=== PATIENT | male | born 1995 | race Caucasian/White ===

== ENCOUNTER 2024-09-07 22:03 | Emergency (ER) | payer MEDICAID, SELFPAY ==
--- NOTE | ~2024-09-07 | CT_ITS ---
EXAMINATION: CT HEAD WITHOUT CONTRAST CLINICAL INFORMATION: First time seizure. COMPARISON: None available. TECHNIQUE: Contiguous axial imaging was performed from the skull base to vertex without intravenous administration of contrast. Sagittal and coronal reformatted images also obtained. This CT examination was performed using dose optimization techniques as appropriate, variously including the following: *Automated exposure control *Adjustment of mA and/or kV according to patient size (this includes techniques or standardized protocols for targeted exams where dose is matched to indication/reason for exam; i.e. extremities or head) *Use of iterative reconstruction technique DLP: 735 mGy-cm FINDINGS: The lateral, third and fourth ventricles are normally outlined. The cortical sulci and basal cisterns are normally outlined as well. There is no acute territorial defect, hemorrhage or midline shift. The extra-axial spaces are unremarkable. Calvarium/scalp: Intact. Maxillofacial sinuses and mastoids: There is mucosal thickening of the frontal and the ethmoid sinuses. The remaining visualized maxillofacial sinuses and mastoids are clear. CT/CT head/brain wo IV con IMPRESSION: No acute intracranial abnormality. Electronically signed by: Kevin Amaro MD 09/07/2024 11:59 PM [facility]
[2024-09-07 22:09] VITALS: BP 129/71; BP 147/33; PULSE 104; PULSE 89; RESP 16; TEMP 36.4; O2SAT 96; O2SAT 97; BMI 33.6
[2024-09-07 22:18] VITALS: BP 129/71; PULSE 95; PULSE 98; RESP 16; TEMP 36.4; O2SAT 97; O2SAT 98
--- NOTE | 2024-09-07 22:19 | ECG_ITS ---
Test Reason : SYNCOPE Blood Pressure : / mmHG Vent. Rate : 085 BPM Atrial Rate : 085 BPM P-R Int : 170 ms QRS Dur : 100 ms QT Int : 366 ms P-R-T Axes : 061 047 030 degrees QTc Int : 435 ms Normal sinus rhythm with sinus arrhythmia Nonspecific T wave abnormality Abnormal ECG No previous ECGs available Referred By: Mariana Rainey Electronically Signed By:Amando Kaiser
--- NOTE | 2024-09-07 22:20 | ED.GENADULT ---
HPI - General Adult General Chief complaint: Fall Stated complaint: possible seizure Time Seen by Provider: 09/07/24 22:10 Source: patient and EMS Mode of arrival: EMS Limitations: no limitations History of Present Illness ED Provider: Dr. Mariana Rainey HPI narrative: Patient comes to the emergency room complaining of a possible seizure. However, patient states that he passed out. Patient states that he was at home in his room, patient states that he started feeling lightheaded like he was going to pass out, got tunnel vision. Patient states that he realized that he was about to pass out, lowered himself to the ground. Patient did not hit his head or lost consciousness. According to bystanders who were with him, they report that the patient was unconscious for a few seconds. no tonic-clonic movements were reported by bystanders. Patient states that at this time he feels a bit nauseous but otherwise feels okay. Patient denies chest pain or shortness of breath, denies lower extremity pain or swelling Related Data Allergies Allergy/AdvReac Type Severity Reaction Status Date / Time No Known Allergies Allergy Verified 09/07/24 22:15 Review of Systems Review of Systems: Constitutional : No Weight loss, No Fever, No Chills, No Night Sweats, No Fatigue, No Malaise ENT/Mouth : No Hearing loss, No Ear Pain, No Nasal Congestion, No Sinus Pain, No Hoarseness, No sore throat, No Rhinorrhea, No Swallowing Difficulty Eyes: No Eye Pain, No Swelling, No Redness, No Foreign Body, No Discharge, No Vision Changes Cardiovascular : No Chest Pain, No SOB, No Dyspnea on Exertion, No Orthopnea, No Edema, No Palpitations Respiratory : No Cough, No Sputum, No Wheezing, No Smoke Exposure, No Dyspnea Gastrointestinal : No Nausea, No Vomiting, No Diarrhea, No Constipation, No abdominal Pain, No Hematochezia, No Melena Genitourinary : no irregular bleeding, No Dysuria, No Urinary Frequency, No Hematuria, No Urinary Incontinence, No Urgency, No Flank Pain, No Urinary Flow Changes, No Hesitancy Musculoskeletal : No joint pain, No Myalgias, No Joint Swelling Skin : No Skin Lesions, No rash Neuro : No Weakness, No Numbness, No Paresthesias, patient reports 1 episode of lightheadedness, tunnel elevation and loss of consciousness, No Dizziness, No Headache Psych : No Anxiety/Panic, No Depression, No SI/HI/AH/VH, No Social Issues, Heme/Lymph: No Bruising, No Bleeding,No Lymphadenopathy Endocrine : No Polyuria, No Polydipsia, No Temperature Intolerance [facility] Social History Social History Smoked in Last 30 Days: No Substance Use Type: Marijuana Advance Directives: No Advance Directives Information Provided: Yes Do you have a plan to hurt others: No Plan Physical Exam ED Vital Signs: Vital Signs - 24 hr 09/07/24 22:09 09/07/24 22:18 09/07/24 22:18 Temperature 97.5 F 97.5 F 97.5 F Pulse Rate 89 95 98 Respiratory Rate 16 16 16 Blood Pressure 129/71 129/71 129/71 Pulse Oximetry 97 98 97 Oxygen Delivery Method Room Air Room Air 09/07/24 22:48 09/07/24 22:48 09/07/24 22:50 Temperature Pulse Rate 87 97 89 Respiratory Rate Blood Pressure 111/58 L 110/70 119/60 Pulse Oximetry Oxygen Delivery Method 09/08/24 00:00 09/08/24 02:22 Temperature 98.2 F Pulse Rate 111 H 100 Respiratory Rate 16 16 Blood Pressure 114/57 L 120/66 Pulse Oximetry 97 94 Oxygen Delivery Method Room Air Room Air BMI result Body Mass Index 33.6 Const Other: Appearance: Alert. Oriented X3. No acute distress. Eyes: Pupils equal, round and reactive to light. ENT: Pharynx normal. Neck: Normal inspection. Neck supple. No lymph nodes noted. No crepitus CVS: Normal heart rate and rhythm. Pulses normal. Normal S1 and S2 Respiratory: No respiratory distress. Breath sounds normal. No Wheezing. No rales Abdomen: Soft and nontender. No rigidity. No distention. Skin: Skin warm and dry. slightly pale skin color. Normal skin turgor. Extremities: No lower extremity edema. No Lacerations. No Rash Neuro: Oriented X 3. No motor deficit. No sensory deficit. Moving all extremities. No slurred speech. CN 2 through 12 grossly intact Psych: calm, cooperative, normal affect Course Course Course Narrative: patient's labs, EKG pending. Patient was given sublingual Zofran for the nausea. Medications Administered Discontinued Medications Generic Name Dose Route Start Last Admin Trade Name Freq PRN Reason Stop Dose Admin Sodium Chloride 1,000 mls @ 999 mls/hr 09/07/24 23:15 09/08/24 02:29 Ns IVCONT 09/08/24 00:15 Infused .Q1H1M ONE Infusion Ondansetron HCl 4 mg 09/07/24 22:22 09/08/24 00:07 Ondansetron Odt 4 Mg Tab.Rapdis TRANSLINGU 09/07/24 22:23 4 mg ONCE ONE Administration Prochlorperazine Edisylate 10 mg 09/07/24 23:18 09/08/24 00:07 Prochlorperazine Edisylate 10 Mg/2 Ml Vial IVPUSH 09/07/24 23:19 10 mg ONCE ONE Administration Medical Decision Making Medical Decision Making [facility] Narrative: patient's white blood cell count 19.9, lactic 2.3. No source of infection, rest of hematology and chemistry within normal limits. D-dimer negative Physical exam, patient has no nuchal rigidity, patient feels much better. Based on patient's labs, he likely did have a seizure. - Head CT did not show any acute abnormality. - Orthostatic vitals are negative - Discussed with the patient to not drive until he is medically cleared by either Neurology or PCP. - At this time, patient's vitals stable, patient states that it feels complaining of back to normal. discussed with the patient to avoid using marijuana or any drugs as this can be triggers. Differential Diagnosis Differential Diagnoses: The differential diagnosis associated with the presentation includes ( Seizure, pseudo-seizure, syncope, near-syncope) Admission/Observation Consideration of admission/observation: Escalation of care including admission/observation considered ( given patient's presentation , observation was considered) Lab Data [facility] Lab Attestation statement: I reviewed the patient's lab results. 09/08/24 00:58 09/07/24 22:42 Labs: Lab Results 09/07/24 09/08/24 09/08/24 Range/Units 22:42 00:58 01:05 WBC 19.9 H 17.4 H (4.8-10.8) X10*3/uL RBC 5.48 5.12 (4.60-5.80) X10*6/uL Hgb 14.9 14.1 (14.0-18.0) g/dl Hct 43.9 40.9 L (42.0-52.0) % MCV 80.1 79.9 L (80.0-98.0) fL MCH 27.2 27.5 (27.0-33.0) pg MCHC 33.9 34.5 (31.0-36.0) g/dl RDW 12.7 12.7 (11.0-16.0) % Plt Count 431 H 324 (160-400) X10*3/uL MPV 9.5 9.5 (9.4-12.4) fL Immature Gran % (Auto) 0.5 H 0.3 (0.0-0.4) % Neut % (Auto) 71.8 87.2 H (45-73) % Lymph % (Auto) 18.5 L 7.7 L (20-40) % [place] % (Auto) 6.0 4.2 (2-11) % Eos % (Auto) 2.5 0.2 (0-4) % Baso % (Auto) 0.7 0.4 (0-2) % Lymph # (Auto) 3.7 1.3 (1.2-4.9) X10*3/uL [place] # (Auto) 1.2 0.7 (0.1-1.2) X10*3/uL Eos # (Auto) 0.5 H 0.0 (0.0-0.4) X10*3/uL Baso # (Auto) 0.1 0.1 (0.0-0.2) X10*3/uL Abs Immat Gran (auto) 0.10 H 0.06 H (0.00-0.03) X10*3/uL Absolute Neuts (auto) 14.3 H 15.1 H (2.0-8.3) x10*3/uL Absolute Nucleated RBC 0.000 0.000 (0.0-0.012) X10*3/uL Nucleated RBC % (auto) 0.0 0.0 (0.0-0.2) /100WBC PT 12.8 H (10.9-12.4) SEC INR 1.1 (0.9-1.1) D-Dimer High Sensitivty 166 NG/ML Sodium 139 (135-145) mmol/L Potassium 3.3 (3.3-5.1) mmol/L Chloride 100 (96-108) mmol/L Carbon Dioxide 26 (22-29) mmol/L Anion Gap 16 (12-20) BUN 13 (9-16) mg/dL Creatinine 1.00 (0.5-1.4) mg/dL Estim Creat Clear Calc 135.8 Estimated GFR > 60 Random Glucose 134 H (60-115) mg/dL Lactic Acid 2.3 H* (0.5-2.0) mmol/L Lactic Acid F/U @ 2Hr 1.7 (0.5-2.0) mmol/L Calcium 9.4 (8.4-10.2) mg/dL Magnesium 2.0 (1.6-2.6) mg/dL Total Bilirubin 0.3 (0.0-1.0) mg/dL Direct Bilirubin 0.1 (0.0-0.5) mg/dL AST 25 (5-37) U/L ALT 30 (0-40) U/L Alkaline Phosphatase 111 (39-117) U/L Troponin I High Sens < 2.7 (<3.5-35.0) ng/L Total Protein 8.7 H (6.5-8.0) g/dL Albumin 4.4 (3.5-5.0) g/dL Urine Color Yellow Urine Appearance Cloudy Urine pH 5.5 (5.0-9.0) Ur Specific [place] 1.020 (1.005-1.025) Urine Protein Trace (Neg-Trace) mg/dL Urine Glucose (UA) Negative (Negative) mg/dL Urine Ketones Trace (Negative) mg/dL Urine Blood Negative (Negative) Urine Nitrite Negative (Negative) Ur Leukocyte Esterase Trace H (Negative) Urine RBC 0-2 (0-2) /HPF Urine WBC 6-10 H (0-5) /HPF Ur Squamous Epith Cells 3-5 (0-2) /HPF Urine Bacteria 1+ (None Seen) Hyaline Casts 3-5 (0-2) /LPF Urine Opiates Screen Not Detected (Not Detect) Ur Buprenorphine Scrn Not Detected (Not Detect) ng/mL Ur Oxycodone Screen Not Detected (Not Detect) ng/mL Urine Methadone Screen Not Detected (Not Detect) ng/mL Urine Fentanyl Screen Not Detected (Not Detect) Ur Barbiturates Screen Not Detected (Not Detect) Ur Phencyclidine Scrn Not Detected (Not Detect) Ur Amphetamines Screen Not Detected (Not Detect) U Benzodiazepines Scrn Not Detected (Not Detect) Urine Cocaine Screen Not Detected (Not Detect) U Marijuana (THC) Screen POSITIVE H (Not Detect) Ethyl Alcohol < 10 mg/dL Independent Interpretation I performed an independent interpretation of an: CT Scan Radiology Impression Discussion of test interpretation with radiology: I have reviewed the radiologist's reading. Radiologist Impression: The lateral, third and fourth ventricles are normally outlined. The cortical sulci and basal cisterns are normally outlined as well. There is no acute territorial defect, hemorrhage or midline shift. The extra-axial spaces are unremarkable. Calvarium/scalp: Intact. Maxillofacial sinuses and mastoids: There is mucosal thickening of the frontal and the ethmoid sinuses. The remaining visualized maxillofacial sinuses and mastoids are clear. CT/CT head/brain wo IV con IMPRESSION: No acute intracranial abnormality. Critical Care Time Critical Care Time Critical Care Time: Yes Total Critical Care Time: 45 Attestation: I have personally provided critical care time. Time includes review of lab data, radiology results, discussion with consultants, and monitoring for potential decompensation. Intervention performed as documented. Discharge Plan Discharge Clinical Impression: Seizure Patient Disposition: Home, Self-Care Instructions: New-Onset Seizure in Adults (ED) Additional Instructions: Please follow-up with your primary care physician tomorrow. Please avoid driving until cleared by PCP or Neurology. If you have any worsening or new symptoms, please return to the emergency room or call 911 Referrals: Clair Steiner MD [Physician] - 10/09/24 Print Language: Bangladeshi
--- NOTE | 2024-09-07 22:43 | MHC.EDTECH ---
Patient states he is unable to provide urine sample at this time.
[2024-09-07 22:48] VITALS: BP 110/70; BP 111/58; PULSE 87; PULSE 97
[2024-09-07 22:48] LABS: MANUAL DIFF FLAG NO
[2024-09-07 22:49] LABS: Basophils Absolute Auto 0.1 X10*3/uL (0.0-0.2); Basophils Percent Auto 0.7 % (0-2); Eosinophils Absolute Auto 0.5 X10*3/uL (0.0-0.4); Eosinophils Percent Auto 2.5 % (0-4); Hematocrit 43.9 % (42.0-52.0); Hemoglobin 14.9 g/dl (14.0-18.0); Imm Gran Pct Auto 0.5 % (0.0-0.4); Lymphocytes Absolute Auto 3.7 X10*3/uL (1.2-4.9); Lymphocytes Percent Auto 18.5 % (20-40); Mean Corpuscular HGB Conc 33.9 g/dl (31.0-36.0); Mean Corpuscular Hemoglobin 27.2 pg (27.0-33.0); Mean Corpuscular Volume 80.1 fL (80.0-98.0); Mean Platelet Volume 9.5 fL (9.4-12.4); Monocytes Absolute Auto 1.2 X10*3/uL (0.1-1.2); Neutrophils Absolute Auto 14.3 x10*3/uL (2.0-8.3); Neutrophils Percent Auto 71.8 % (45-73); Platelet Count 431 X10*3/uL (160-400); Red Blood Count 5.48 X10*6/uL (4.60-5.80); Red Cell Distribution Width 12.7 % (11.0-16.0); White Blood Count 19.9 X10*3/uL (4.8-10.8)
[2024-09-07 22:50] VITALS: BP 119/60; PULSE 89
[2024-09-07 22:55] LABS: INTERNATIONAL NORM RATIO 1.1 (0.9-1.1); Prothrombin Time 12.8 SEC (10.9-12.4)
[2024-09-07 22:56] LABS: D Dimer High Sensitivity 166 NG/ML
[2024-09-07 23:05] LABS: Alanine Aminotransferase 30 U/L (0-40); Albumin Level 4.4 g/dL (3.5-5.0); Alkaline Phosphatase 111 U/L (39-117); Anion Gap 16 (12-20); Aspartate Amino Transferase 25 U/L (5-37); Bilirubin Direct 0.1 mg/dL (0.0-0.5); Bilirubin Total 0.3 mg/dL (0.0-1.0); Blood Urea Nitrogen 13 mg/dL (9-16); Calcium 9.4 mg/dL (8.4-10.2); Carbon Dioxide 26 mmol/L (22-29); Chloride 100 mmol/L (96-108); Creatinine Clr Calc Pharmacy 135.8; Estimated Glomerular Filt Rate > 60; Ethanol < 10 mg/dL; Glucose Random 134 mg/dL (60-115); Potassium 3.3 mmol/L (3.3-5.1); Sodium 139 mmol/L (135-145); Total Protein 8.7 g/dL (6.5-8.0)
[2024-09-07 23:11] LABS: Troponin-I High Sensitivity < 2.7 ng/L (<3.5-35.0)
[2024-09-07 23:15] LABS: Lactic Acid 2.3 mmol/L (0.5-2.0)
[2024-09-08] VITALS: BP 114/57; PULSE 111; RESP 16; O2SAT 97
[2024-09-08] MEDS: Ondansetron ODT 4 MG TAB.RAPDIS TRANSLINGU (00:07)
[2024-09-08] MEDS: Prochlorperazine Edisylate 10 MG/2 ML VIAL IVPUSH (00:07)
[2024-09-08] MEDS: 0.9 % Sodium Chloride 1,000 ML 999 ML IVCONT (00:07)
[2024-09-08 00:46] LABS: Reflex Lactate? Lactic Acid Added
[2024-09-08 01:05] LABS: Basophils Absolute Auto 0.1 X10*3/uL (0.0-0.2); Basophils Percent Auto 0.4 % (0-2); Eosinophils Percent Auto 0.2 % (0-4); Hematocrit 40.9 % (42.0-52.0); Hemoglobin 14.1 g/dl (14.0-18.0); Imm Gran Abs Auto 0.06 X10*3/uL (0.00-0.03); Imm Gran Pct Auto 0.3 % (0.0-0.4); Lymphocytes Absolute Auto 1.3 X10*3/uL (1.2-4.9); Lymphocytes Percent Auto 7.7 % (20-40); MANUAL DIFF FLAG NO; Mean Corpuscular HGB Conc 34.5 g/dl (31.0-36.0); Mean Corpuscular Hemoglobin 27.5 pg (27.0-33.0); Mean Corpuscular Volume 79.9 fL (80.0-98.0); Mean Platelet Volume 9.5 fL (9.4-12.4); Monocytes Absolute Auto 0.7 X10*3/uL (0.1-1.2); Monocytes Percent Auto 4.2 % (2-11); Neutrophils Absolute Auto 15.1 x10*3/uL (2.0-8.3); Neutrophils Percent Auto 87.2 % (45-73); Platelet Count 324 X10*3/uL (160-400); Red Blood Count 5.12 X10*6/uL (4.60-5.80); Red Cell Distribution Width 12.7 % (11.0-16.0); White Blood Count 17.4 X10*3/uL (4.8-10.8)
[2024-09-08 01:14] LABS: Appearance Urine Cloudy; Color Urine Yellow; Glucose Urine UA Negative (Negative); Leukocyte Esterase Urine Trace (Negative); Nitrite Urine Negative (Negative); PH 5.5 (5.0-9.0); UMIC TRIGGER UACC YES; Urine Blood Negative (Negative); Urine Ketones Trace mg/dL (Negative); Urine Protein Trace mg/dL (Neg-Trace)
[2024-09-08 01:17] LABS: ~Lactic Acid-LAB USE ONLY 1.7 mmol/L (0.5-2.0)
[2024-09-08 01:19] LABS: Bacteria Urine 1+ (None Seen); RBC Urine 0-2 /HPF (0-2); UACC Culture Trigger YES
[2024-09-08 01:24] LABS: Amphetamine Screen Urine Not Detected (Not Detect); Barbiturates, Urine Not Detected (Not Detect); Benzodiazepines Screen Urine Not Detected (Not Detect); Buprenorphine Scr Not Detected (Not Detect); Cannabinoid Screen Urine POSITIVE (Not Detect); Cocaine Screen Urine Not Detected (Not Detect); Fentanyl, urine Not Detected (Not Detect); Methadone Screen, Urine Not Detected (Not Detect); Opiate Screen Urine Not Detected (Not Detect); Oxycodone Screen Urine Not Detected (Not Detect); Phencyclidine Screen Urine Not Detected (Not Detect)
[2024-09-08 02:22] VITALS: BP 120/66; PULSE 100; RESP 16; TEMP 36.8; O2SAT 94
[2024-09-08 02:40] VITALS: BP 120/66; PULSE 100; RESP 16; TEMP 36.8; O2SAT 94
== END 2024-09-08 02:44 | disposition home or self-care (01) ==
PROVIDERS: Emergency Provider Emergency Medicine
DX: R56.9 Unspecified convulsions (principal); F12.90 Cannabis use, unspecified, uncomplicated
CPT/HCPCS: 36415; 70450; 80048; 80076; 80307; 81001; 83605; 83735; 84484; 85025; 85379; 85610; 87086; 93005; 96361; 96374; 99284; 99285; J0737

== ENCOUNTER → 2024-09-07 22:19 | Outpatient (BNV) | payer SELFPAY | PROVIDERS: Emergency Provider Emergency Medicine; Visit Provider Internal Medicine Cardiovascular Disease | DX: R55 Syncope and collapse (principal) | CPT/HCPCS: 93010 ==